=== PATIENT | male | born 1945 | race Caucasian/White ===

== ENCOUNTER 2018-08-19 07:38 | Inpatient (IN) | payer MEDICARE, OTHER ==
[~2018-08-19] VITALS: Ht 175.3 cm; Wt 93.5 kg
--- NOTE | 2018-08-19 09:11 | NUR ---
NURSE WILL START IV ABX ONCE CULTURES ARE COMPLETED.
[2018-08-19 09:42] LABS: CKMB 1.6 U/L (0.0-3.6); CREATINE KINASE 77 UL (21-232); CREATININE - SERUM 1.1 mg/dL (0.6-1.3); MAGNESIUM - SERUM 1.8 mg/dL (1.8-2.4); PRO BNP 4839 pg/mL (0-125)
[2018-08-19 09:43] LABS: TROPONIN-I 0.186 ng/mL (0.000-0.060)
--- NOTE | 2018-08-19 10:23 | NUR ---
NS STOPPED AT THIS TIME PER VERBAL ORDER DR. BUTT.
--- NOTE | 2018-08-19 10:24 | NUR ---
DIBETIC FOOD TRAY ORDERED AT THIS TIME.
--- NOTE | 2018-08-19 13:24 | NUR ---
RECEIVED PT FROM ER. PT IS AAO AND UP AD NELSON. RR EVEN AND UNLABORED ON RA. NO S/S OF DISTRESS NOTED. L.FOR PIV IS SALINE LOCKED. VSS AND WNL. QUICKSTART AND HISTORY COMPLETE. PT DENIES ANY NEEDS AT THIS TIME. WILL CTM.
[2018-08-19] MEDS ORDERED: COREG6.25 MG PO (13:34)
[2018-08-19] MEDS ORDERED: CELEXA40 MG PO (13:34)
[2018-08-19] MEDS ORDERED: FEXOFENADINE H180 MG PO (13:34)
[2018-08-19] MEDS ORDERED: NEURONTIN 300300 MG PO (13:35)
[2018-08-19] MEDS ORDERED: PROTONIX40 MG PO (13:35)
--- NOTE | 2018-08-19 13:35 | NUR ---
TRANSFER FROM ER BY STRETCHER. OREINTED TO ROOM. CALL LIGHT IN REACH. WILL CONT. PLAN OF CARE.
[2018-08-19] MEDS ORDERED: ZOCOR20 MG PO (13:36)
[2018-08-19 13:43] VITALS: BP 153/84; BMI 29.6
[2018-08-19] MEDS ORDERED: LANTUS SOL100 UNIT/1 SC (16:17)
[2018-08-19 16:43] LABS: BASOPHILS 0.3 % (0-2); EOSINOPHILS 1.6 % (0-7); HEMATOCRIT 40.4 % (42.0-54.0); HEMOGLOBIN 13.4 g/dL (13.5-17.5); IMMATURE GRANULOCYTES 0.1 % (0-5); LYMPHOCYTES 30.1 % (15-50); MCH 29.8 pg (26.0-34.0); MCHC 33.2 g/dL (31.0-37.0); MEAN PLATELET VOLUME 10.5 fL (7.4-10.4); NEUTROPHILS 58.9 % (40-80); PLATELET COUNT 238 10x3/uL (130-400); RBC 4.49 10x6/uL (4.20-6.10); RDW 12.7 % (11.5-14.5); WBC 7.9 10x3/uL (4.8-10.8)
[2018-08-19 17:02] LABS: ALBUMIN 2.9 g/dL (3.4-5.0); ANION GAP 10.4 mmol/L (8-16); BILIRUBIN - TOTAL 0.43 mg/dL (0.2-1.3); CALCIUM 8.5 mg/dL (8.5-10.1); CARBON DIOXIDE 30.1 mmol/L (21.0-32.0); CREATININE - SERUM 1.3 mg/dL (0.6-1.3); MAGNESIUM - SERUM 1.6 mg/dL (1.8-2.4); POTASSIUM - SERUM 3.5 mmol/L (3.5-5.1); PROTEIN - SERUM 7.2 g/dL (6.4-8.2); T4 THYROXIN - FREE 1.03 ng/dL (0.76-1.46); THYROID STIMULATING HORMONE 2.2 uIU/mL (0.36-3.74)
[2018-08-19 17:07] LABS: CKMB 1.7 U/L (0.0-3.6); CREATINE KINASE 79 UL (21-232)
[2018-08-19 17:44] LABS: TROPONIN-I 0.192 ng/mL (0.000-0.060)
[2018-08-19 18:23] LABS: COLOR YELLOW (YELLOW)
[2018-08-19 18:24] LABS: APPEARANCE CLEAR (CLEAR); BACTERIA FEW /hpf (NONE SEEN); BILIRUBIN NEGATIVE (NEGATIVE); GLUCOSE 50 mg/dL (NEGATIVE); KETONE NEGATIVE (NEGATIVE); NITRITE NEGATIVE (NEGATIVE); PROTEIN TRACE mg/dL (NEGATIVE); RED CELLS - URINE OCC /hpf (0-5); UROBILINOGEN NORMAL (NORMAL); WHITE CELLS - URINE 0-5 /hpf (0-5)
--- NOTE | 2018-08-19 19:50 | NUR ---
INTRODUCED SELF TO PATIENT, PATIENT HAS NO NEEDS AT THIS TIME. RESP EVEN AND UNLABORED, NO S/SX OF DISCOMFORT OR DISTRESS AT THIS TIME.
[2018-08-19 21:33] VITALS: BP 140/90
[2018-08-19 22:13] LABS: CKMB 1.6 U/L (0.0-3.6); CREATINE KINASE 85 UL (21-232)
[2018-08-19 22:22] LABS: TROPONIN-I 0.214 ng/mL (0.000-0.060)
[2018-08-20] VITALS (7 sets, daily range): BP systolic 113–151; BP diastolic 71–133; Ht 175.3 cm; Wt 93.5 kg
--- NOTE | 2018-08-20 01:07 | NUR ---
PATIENT STATED THAT HE FELT SOME CHEST PRESSURE HE THOUGHT WAS R/T EXCESS FLUID FROM CHF. VITALS WITHIN NORMAL LIMITS, PATIENT HAS BEEN IN AND OUT OF CONTROLLED AFIB. RECHECKED ON PATIENT AND PATIENT STATES HE THINK HE JUST DIDN'T NEED TO LAY COMPLETELY FLAT.
--- NOTE | 2018-08-20 05:02 | NUR ---
PATIENT RESTING QUIETLY WITH EYES CLOSED, HOB AT 30 DEGREES, PATIENT PREFERS TO WEAR OWN CLOTHES INSTEAD OF A GOWN. NO S/SX OF DISTRESS OR DISCOMFORT AT THIS TIME. RESP EVEN AND UNLABORED.
[2018-08-20 05:23] LABS: BASOPHILS 0.3 % (0-2); EOSINOPHILS 3.6 % (0-7); HEMATOCRIT 41.2 % (42.0-54.0); HEMOGLOBIN 13.7 g/dL (13.5-17.5); IMMATURE GRANULOCYTES 0.2 % (0-5); LYMPHOCYTES 29.2 % (15-50); MCH 30.1 pg (26.0-34.0); MCHC 33.3 g/dL (31.0-37.0); MCV 90.5 fL (80.0-100.0); MEAN PLATELET VOLUME 10.4 fL (7.4-10.4); MONOCYTES 8.9 % (2-11); NEUTROPHILS 57.8 % (40-80); PLATELET COUNT 245 10x3/uL (130-400); RBC 4.55 10x6/uL (4.20-6.10); RDW 12.7 % (11.5-14.5)
[2018-08-20 06:27] LABS: CALC OSMOLALITY 281 mosm/kg (275-300); CALCIUM 8.7 mg/dL (8.5-10.1); CARBON DIOXIDE 28.5 mmol/L (21.0-32.0); CHLORIDE - SERUM 100 mmol/L (98-107); CHOL - HDL RATIO 5.2 ratio (2.3-4.9); CHOLESTEROL, TOTAL 125 mg/dL (0-200); CKMB 1.5 U/L (0.0-3.6); CREATINE KINASE 148 UL (21-232); CREATININE - SERUM 1.2 mg/dL (0.6-1.3); GLUCOSE 221 mg/dL (74-106); HDL CHOLESTEROL 24 mg/dL (32-96); LDL CHOLESTEROL 71 mg/dL (0-100); POTASSIUM - SERUM 3.8 mmol/L (3.5-5.1); SODIUM 136 mmol/L (136-145); TRIGLYCERIDE 151 mg/dL (30-200); TROPONIN-I 0.181 ng/mL (0.000-0.060); UREA NITROGEN 21 mg/dL (7-18); eGFR NON AFRICAN AMERICAN 63 mL/min (90-120)
--- NOTE | 2018-08-20 07:05 | NUR ---
RECEIVED REPORT. ASSUMED CARE OF PATIENT. CALL LIGHT WITHIN REACH. PATIENT RESTING WITH EYES CLOSED. EASILY AROUSED. RESP EVEN AND UNLABORED. NO DISTRESS. DENIES NEEDS AT THIS TIME.
--- NOTE | 2018-08-20 11:36 | NUR ---
CALLED PHARMACY DUE TO NOT HAVING LANTUS PEN AND LOAN SUPERVISOR LINDA HUNG UP ON THIS MANAGER ASSET MANAGEMENT. NURSE AUDIO VISUAL AIDS DIRECTOR MADE AWARE. AWAITING FOR LANTUS PEN.
--- NOTE | 2018-08-20 11:44 | NUR ---
FSBS 298. 10 UNITS HUMULIN ADMINISTERED PER SLIDING SCALE. NO DISTRESS.
--- NOTE | 2018-08-20 13:25 | NUR ---
LANTUS PEN STILL NOT AVAILABLE FROM PHARMACY AT THIS TIME.
--- NOTE | 2018-08-20 16:49 | NUR ---
FSBS 163. 4 UNITS HUMULIN R ADMINISTERED PER SLIDING SCALE. NO DISTRESS.
--- NOTE | 2018-08-20 17:20 | NUR ---
PATIENT SURPRISED AT HOW WELL HIS FSBS HAS BEEN CONTROLLED WITHOUT HAVING HIS 44 UNITS OF LANTUS. PATIENT STATES HE HAS NEVER TAKEN DIABETA BEFORE BUT IT SEEMS TO BE WORKING WELL FOR HIM. CALL LIGHT WITHIN REACH. FRESH ICEWATER PROVIDED. NO DISTRESS.
--- NOTE | 2018-08-21 02:39 | NUR ---
PT RESTING IN BED, LOW POSITION, EYES CLOSED, AROUSES EASILY TO VOICE, NO IMMEDIATE NEEDS NOTED, FLUIDS AND CALL LIGHT WITHIN REACH
[2018-08-21 04:09] VITALS: BP 137/77
[2018-08-21 06:53] LABS: BASOPHILS 0.3 % (0-2); EOSINOPHILS 4.5 % (0-7); HEMATOCRIT 42.2 % (42.0-54.0); HEMOGLOBIN 13.9 g/dL (13.5-17.5); IMMATURE GRANULOCYTES 0.2 % (0-5); LYMPHOCYTES 32.7 % (15-50); MCHC 32.9 g/dL (31.0-37.0); MCV 91.1 fL (80.0-100.0); MEAN PLATELET VOLUME 10.6 fL (7.4-10.4); MONOCYTES 9.6 % (2-11); NEUTROPHILS 52.7 % (40-80); PLATELET COUNT 249 10x3/uL (130-400); RBC 4.63 10x6/uL (4.20-6.10); RDW 12.9 % (11.5-14.5); WBC 9.4 10x3/uL (4.8-10.8)
[2018-08-21 07:19] LABS: CALCIUM 8.7 mg/dL (8.5-10.1); CARBON DIOXIDE 28.9 mmol/L (21.0-32.0); CREATININE - SERUM 1.3 mg/dL (0.6-1.3); POTASSIUM - SERUM 3.9 mmol/L (3.5-5.1)
--- NOTE | 2018-08-21 07:30 | NUR ---
REPORT RECEIVED. WILL CONTINUE WITH POC. PT CURRENTLY LYING SEMI FOWLERS. CALL LIGHT W/I REACH. PT IS AAO AND UP AD NELSON. RR EVEN AND UNLABORED ON RA. L.FOR PIV IS SALINE LOCKED. PT DENIES ANY NEEDS AT THIS TIME. NO S/S OF DISTRESS NOTED. WILL CTM.
[2018-08-21] MEDS ORDERED: LEVAQUIN750 MG PO (09:27)
[2018-08-21] MEDS ORDERED: LANTUS INSULIN10 ML SC (09:27)
[2018-08-21] MEDS ORDERED: LISINOPRIL5 MG PO (09:29)
[2018-08-21 09:45] VITALS: BP 133/85
--- NOTE | 2018-08-21 11:07 | NUR ---
Nutrition Consult: Consult received to provided diabetic diet education to pt. Pt stated that he has had diabetes for several years and has read information regarding this. Pt stated that he does not eat sweets or drink sweetened beverages. He said that he typically does not eat (or eats a very minimal amount) until dinner. Pt said that his overall po intake is decreased. Spoke with pt regarding importance of 3 meals and 3 snacks each day and provided pt with sample meal plan. Reviewed CHO containing food groups. Encouraged pt to continue to avoid sweets and sweetened beverages. Pt displayed good understanding of material presented. RD phone number provided and pt encouraged to contact RD with any questions. Written info provided to pt. Thank you for the consult. RD following.
--- NOTE | 2018-08-21 13:46 | NUR ---
I have reviewed this patient and I concur with the Shift Assessment completed by the Licensed Practical Nurse today this shift.
--- NOTE | 2018-08-21 15:27 | NUR ---
RECEIVED VERBAL ORDERS FROM THAT PT COULD DISCHARGE AND THAT THEY WOULD SCHEDULE HIM TO RETURN THIS NEXT WEEK FOR A HEART CATH. WILL PROCEED WITH DISCHARGE.
[2018-08-21 15:52] VITALS: BP 130/70
--- NOTE | 2018-08-21 17:26 | MORECARE ---
CASE MANAGEMENT DISCHARGE SUMMARY PATIENT: CARSON VELAZQUEZ UNIT: [id number] ADM DATE: 08/19/18 AGE: 73 : 45 SEX: M ROOM/BED: D.2131 AUTHOR: GALILEA TAPIA PHYSICIAN: REFERRING PHYSICIAN: ADELE SCALES MD DATE OF SERVICE: 08/21/18 Discharge Plan Patient Name: CARSON VELAZQUEZ Facility: [facility]:[place] : 1945 Planned Disposition: Home Anticipated Discharge Date: 08/21/18 Discharge Date: Expected LOS: 2 Initial Reviewer: [email or web address] Initial Review Date: 08/21/2018 Generated: 08/21/18 6:26 pm DCPIA - Discharge Planning Initial Assessment Updated by [email or web address]: Jr Prater on 08/21/18 5:25 pm * Is the patient Alert and Oriented? Yes * How many steps to enter\\exit or inside your home? NONE * [facility] [place] [facility] ALSO * Pharm[facility] * Preadmission Environment Home Alone * ADLs Independent * Equipment None * Other Equipment [facility] * List name and contact numbers for known caregivers / representatives who currently or will assist patient after discharge: LANA COLLINSChayito, FRIEND, * Verbal permission to speak to the caregivers and representatives has been obtained from the patient. N/A * Community resources currently utilized None * Please name any agencies selected above. NONE * Additional services required to return to the preadmission environment? No * Can the patient safely return to the preadmission environment? Yes * Has this patient been hospitalized within the prior 30 days at any hospital? No Patient Name: CARSON VELAZQUEZ Page [id number] at 1726 All edits/amendments must be made on the electronic document DICTATION DATE: 08/21/181724 CONTINUITY WRITER: CATRACHITA 08/21/181724 RPT#: [id number] DC DATE: STATUS: ADM IN [facility] [address] [place] [address] END OF REPORT
--- NOTE | 2018-08-21 17:36 | MORECARE ---
CASE MANAGEMENT DISCHARGE SUMMARY PATIENT: CARSON VELAZQUEZ UNIT: [id number] ADM DATE: 08/19/18 AGE: 73 : 45 SEX: M ROOM/BED: D.2131 AUTHOR: WILLIE,DOC PHYSICIAN: REFERRING PHYSICIAN: ADELE SCALES MD DATE OF SERVICE: 08/21/18 Discharge Plan Patient Name: CARSON VELAZQUEZ Facility: [facility]:[place] : 1945 Planned Disposition: Home Anticipated Discharge Date: 08/21/18 Discharge Date: Expected LOS: 2 Initial Reviewer: [email or web address] Initial Review Date: 08/21/2018 Generated: 08/21/18 6:36 pm Comments DCP- Discharge Planning Updated by [email or web address]: Jr Prater on 08/21/18 4:[address] Patient Name: CARSON VELAZQUEZ Admission Status: ER Accout number: [id number] Admission Date: 08-19-2018 : 1945 Admission Diagnosis: Attending: ADELE SCALES Current LOS: 2 Anticipated DC Date: 08-21-2018 Planned Disposition: Home Primary Insurance: MEDICARE A & B Discharge Planning Comments: CM MET WITH PT IN ROOM TO DISCUSS DISCHARGE PLANNING AND NEEDS. PT REPORTS LIVING AT HOME INDEPENDENTLY AND ALONE. PT HAS NO MEDICAL EQUIPMENT AND NO OUTSIDE SERVICES ASSISTING IN THE HOME. CM DISCUSSED AVAILABILITY OF HOME HEALTH, REHAB SERVICES AND MEDICAL EQUIPMENT. PT DENIES DISCHARGE NEEDS, REPORTS A FRIEND WILL PICK HIM UP FOR DISCHARGE HOME. PT INITIALLY STATES HE CANNOT AFFORD HIS MEDICATION IT IS $437. PT DOES NOT HAVE "CIVIALIAN" INSURANCE FOR PRESCRIPTIONS, HE ONLY BOUGHT THE MEDICAL MEDICARE INSURANCE [facility]. CM CALLED [facility], , SPOKE TO SHITAL WHO INFORMED CM AND PT THAT HIS LEVAQUIN IS $92.64. PT STATES HE HAS LISINOPRIL AND LANTUS AT HOME AND [facility] PROVID[facility] IT. PT REPORTS ABILITY TO AFFORD HIS ANTIBIOTIC, DENIES DISCHARGE NEEDS. BEDSIDE NURSE NOTFIED. First Assist: Jr Prater DCPIA - Discharge Planning Initial Assessment Updated by [email or web address]: Jr Prater on 08/21/18 5:25 pm * Is the patient Alert and Oriented? Yes * How many steps to enter\\exit or inside your home? NONE * [facility] [place] [facility]IAN" DOCTOR ALSO * Pharmacy [facility] OR [facility] * Preadmission Environment Home Alone * ADLs Independent * Equipment None * Other Equipment [facility] * List name and contact numbers for known caregivers / representatives who currently or will assist patient after discharge: LANA GALLEGOS, FRIEND, * Verbal permission to speak to the caregivers and representatives has been obtained from the patient. N/A * Community resources currently utilized None * Please name any agencies selected above. NONE * Additional services required to return to the preadmission environment? No * Can the patient safely return to the preadmission environment? Yes * Has this patient been hospitalized within the prior 30 days at any hospital? No Last DP export: 08/21/18 4:26 p Patient Name: CARSON VELAZQUEZ Page [id number] at 1736 All edits/amendments must be made on the electronic document DICTATION DATE: 08/21/181735 BANQUET STEWARDESS: CATRACHITA 08/21/181735 RPT#: [id number] DC DATE: STATUS: ADM IN [facility] [address] [place] [address] END OF REPORT
--- NOTE | 2018-08-21 17:37 | NUR ---
PT DISCHARGED HOME VIA WHEELCHAIR WITH FAMILY. PT SIGNED PROPER DISCHARGE INSTRUCTION AND REMOVED ALL VALUABLES FROM THE ROOM. PIV REMOVED WITH CATHETER TIP FULLY INTACT.
--- NOTE | 2018-09-02 13:26 | EC ---
PATIENT:CARSON VELAZQUEZ DATE OF SERVICE: 08/19/18 SEX: M MEDICAL RECORD: [id number] DATE OF : 45 LOCATION:D.M2 D.213 AGE OF PATIENT: 73 ADMISSION DATE: 08/19/18 REFERRING PHYSICIAN: INTERPRETING PHYSICIAN: PRIMITIVO BENSON MD ECHOCARDIOGRAM REPORT ECHO CHARGES 4 ECHO COMPLETE Date: 08/20/18 CLINICAL DIAGNOSIS: CHF ECHOCARDIOGRAPHIC MEASUREMENTS (adult normal given) AC root (d.<3.7cm) 3.1 cm LV Septum d (<1.2 cm> 0.7 cm Valve Excursion 1.8 cm LV Septum (systole) 0.8 cm Left Atria (s.<4.0cm> 5.0 cm LVPW d(<1.2cm) 1.0 cm RV (d.<2.3cm) 2.8 cm LVPW (sytole) 1.3 cm LV diastole(<5.6CM) 6.9 cm MV E-F(>70mm/sec) cm LV systole 6.3 cm LVOT Diameter 1.9 cm MV exc.(>10mm) cm Est.ejection fraction (50-75%) % DOPPLER: LVIT cm/sec A 25 cm/sec E 102 cm/sec LA cm/sec RVSP 27.3 mmHg LVOT 75 cm/sec AOP1/2T m/s Asc. Ao 134 cm/sec RVOT 57 cm/sec RA cm/sec PA 81 cm/sec AV Gradient Peak 7.2 mmHg AV Mean 4.8 mmHg AV Area 1.7 cm MV Gradient Peak 4.8 mmHg MV Mean 1.9 mmHg MV Area cm COMMENTS: Mobility Scooter Repairer: Dot GIBBS Costumer Assistant: 3 Dr. Whitaker TAPE# PACS Pericardial Effusion N DATE OF SERVICE: Adequate 2-D, color-flow and spectral Doppler, and M-mode. No LVH. LV internal dimensions are dilated. LV is globally hypokinetic with marked septal hypokinesis. LV function is reduced at 25% to 30%. Aortic valve sclerosis without stenosis by Doppler interrogation. Left atrium is dilated at 5.0 cm. Mitral valve shows no prolapse. Mitral annular calcification and mild MR. Right-sided chambers are grossly normal. Mild plus TR. RV systolic pressure is estimated at greater than or equal to 27 mmHg via the continuity ECHOCARDIOGRAM REPORT [id number] CARSON VELAZQUEZ. TRANSINT:[id number] Voice Confirmation ID: [id number] DOCUMENT ID: [id number] PRIMITIVO BENSON MD at 1326 CC: [id number] DICTATION DATE: 08/20/18 1631 BUSINESS OFFICE TECHNICIAN: 08/20/182010 DIS IN 08/21/18 [place] [id number] [place] [id number]
== END 2018-08-21 17:38 | disposition home or self-care (01) | DRG 291 ==
LOC: D.ER 07:38 → D.M2 10:43
PROVIDERS: Emergency Medicine; ADMIT Internal Medicine Nephrology; ATTEND Internal Medicine Nephrology
DX: I11.0 Hypertensive heart disease with heart failure (principal); J18.1 Lobar pneumonia, unspecified organism; I24.8 Other forms of acute ischemic heart disease; N17.9 Acute kidney failure, unspecified; I48.91 Unspecified atrial fibrillation; I50.23 Acute on chronic systolic (congestive) heart failure; E78.5 Hyperlipidemia, unspecified; I25.10 Atherosclerotic heart disease of native coronary artery without angina pectoris; K21.9 Gastro-esophageal reflux disease without esophagitis; K75.9 Inflammatory liver disease, unspecified; E11.9 Type 2 diabetes mellitus without complications

== ENCOUNTER 2018-08-28 11:33 | Outpatient (CLI) | payer MEDICARE, OTHER ==
[~2018-08-28] VITALS: Ht 172.7 cm; Wt 88.6 kg
--- NOTE | ~2018-08-28 | HEMODYNAMI ---
PATIENT:CARSON VELAZQUEZ MEDICAL RECORD: [id number] : 45 LOCATION:DNoyCAT ADMISSION DATE: 08/28/18 Generatedon:08/28/201815:35 Patient name: CARSON VELAZQUEZ Patient #: [id number] SSN: : 1945 Date of study: 08/28/2018 Page: Of Hemodynamic Procedure Report Patient Data Patient Demographics Procedure consent was obtained First Name: CARSON Gender: Male Last Name: CAROLINE : 1945 [facility] Initial: IRIS Age: 73 year(s) Patient #: [id number] Race: Unknown Additional ID: [id number] Contact details Address: [place] [address] State: [place] City: [place] Zip code: [address] Admission Admission Data Admission Date: 08/28/2018 Admission Time: 11:33 Procedure Procedure Types Cath Procedure Diagnostic Procedure LHC LHC w/Coronaries w/Grafts Sedation Charges Moderate Sedation up to 15 minutes PCI Procedure Coronary Stent Coronary Stent Initial Procedure Description Procedure Date Procedure Date: 08/28/2018 Procedure Start Time: 15:06 Procedure End Time: 15:32 Procedure Staff Name Function Bright Mauricio MD Performing Physician Merna Vyas RT Monitor Asa Dowling RN Nurse Froylan Garcia RT Scrub Procedure Data Cath Procedure Fluoroscopy Diagnostic fluoroscopy Total fluoroscopy Time: 6.3 time: 6.3 min min Diagnostic fluoroscopy Total fluoroscopy dose: dose: 1337 mGy 1337 mGy Contrast Material Contrast Material Type Amount (ml) Isovue 300 108 Entry Location Entry Primary Successful Side Size Upsize Upsize Entry Closure Succes sful Closure Location (Fr) 1 (Fr) 2 (Fr) Remarks Device Remarks Femoral Right 5 Fr 6 Fr Exoseal artery Short Estimated blood loss: 5 ml Diagnostic catheters Device Type Used For End Catheter Placement MULTIPACK JL 4.0 5Fr Left Coronary catheter Angiography MULTIPACK 3DRC 5Fr Right Coronary catheter Angiography DIAGNOSTIC AR MOD 5Fr Multi-vessel Catheter ([id number]) Angiography MULTIPACK Pigtail 5 Fr LV Angiography catheter Procedure Complications No complications Procedure Medications Medication Administration Route Dosage 0.9% NaCl I.V. 100 ml/hr Oxygen etCO2 Nasal cannula 2 l/min Heparin Flush Bag added to field 2 bags (1000units/500ml NS) Lidocaine 2% added to field 20 Versed I.V. 1 mg Fentanyl I.V. 50 mcg Versed I.V. 1 mg Fentanyl I.V. 50 mcg Versed I.V. 2 mg Heparin Bolus I.V. 9000 units Plavix P.O. 600 mg Hemodynamics Rest Heart Rate: 64 (bpm) Pressure Samples Time Site Value (mmHg) Purpose Heart Use Rate(bpm) 15:15 LV 110/25,31 Snapshot 55 15:16 AO 102/62(78) Pullback 66 15:16 LV 104/13,22 Pullback 66 Gradients Valve Time Site 1 Site 2 Mean SEP/DFP Peak To Heart Use (mmHg) (sec/min) Peak Rate (mmHg) (bpm) Aortic 15:16 LV AO 11 18 2 66 104/13,22 102/62(78) Calculations Valve P-P Mean Valve Index Valve Source Name Gradient Area Flow (cm2) Aortic 2 11 2 11 Snapshots Pre Cath Intra NCS Post Cath Vital Signs Time Heart Resp SPO2 etCO2 NIBP (mmHg) Rhythm Pain Sedation Rate (ipm) (%) (mmHg) Status Level (bpm) 14:50:05 64 14 98 0 124/82(109) NSR 0 (11) 10(A) , No pain 14:54:11 63 13 100 36.5 133/77(104) NSR 0 (11) 10(A) , No pain 14:58:21 60 19 99 38 127/73(90) NSR 0 (11) 10(A) , No pain 15:02:28 61 19 98 38.8 115/74(91) NSR 0 (11) 10(A) , No pain 15:06:30 61 19 98 29.1 122/75(97) NSR 0 (11) 10(A) , No pain 15:10:36 61 14 98 0 127/72(95) NSR 0 (11) 9(A) , No pain 15:14:42 69 15 97 38.1 123/82(93) NSR 0 (11) 9(A) , No pain 15:18:48 65 15 97 21.6 125/79(95) NSR 0 (11) 9(A) , No pain 15:22:53 65 16 98 13.4 124/81(100) NSR 0 (11) 9(A) , No pain 15:27:05 66 16 97 0 112/73(81) NSR 0 (11) 9(A) , No pain 15:31:07 65 17 98 38.8 121/73(95) NSR 0 (11) 10(A) , No pain Medications Time Medication Route Dose Verified Delivered Reason Notes Effectiveness by by 14:52:23 0.9% NaCl I.V. 100 Asa Asa Per physician ml/hr Josey Dowling RN RN 14:52:33 Oxygen etCO2 2 Asa Asa for low 02 sats Nasal l/min Josey Dowling cannula RN RN 14:52:45 Heparin Flush added 2 Asa Asa used for Bag to bags Josey Dowling procedure (1000units/500ml field RN RN NS) 14:52:56 Lidocaine 2% added 20ml Asa Asa for local to vial Lorgermán Dowling anesthetic field RN RN 14:53:10 Versed I.V. 1 mg Asa Asa for sedation Josey Dowling RN RN 14:53:20 Fentanyl I.V. 50 Asa Asa for sedation mcg Josey Dowling RN RN 15:03:31 Versed I.V. 1 mg Asa Asa for sedation Josey Dowling RN RN 15:05:11 Fentanyl I.V. 50 Asa Asa for sedation mcg Josey Dowling RN RN 15:08:07 Versed I.V. 2 mg Asa Asa for sedation Josey Dowling RN RN 15:20:26 Heparin Bolus I.V. 9,000 Asa Asa for units Josey Dowling anticoagulation RN RN 15:34:12 Plavix P.O. 600 Asa Asa for mg Josey Dowling antiplatelet RN RN therapy Procedure Log Time Note 13:46:29 Informed consent obtained and on chart 13:46:34 Diagnostic Cath Status : Elective 13:47:38 Froylan Garcia RT(R) sent for patient. Start room use. 13:47:39 Time tracking: Regular hours (M-F 7:00 - 5:00) 13:47:49 Plan of Care:Hemodynamics will remain stable., Cardiac rhythm will remain stable., Comfort level will be maintained., Respiratory function will remain adequate., Patient/ family verbilizes understanding of procedure., Procedure tolerated without complication., Recovers from procedure without complications.. 14:42:59 Patient received from Pre/Post Procedure Room to CCL 2 Alert and oriented. Tansferred to table in Supine position. 14:43:01 Warm blankets applied, and aristeo hugger turned on for patient comfort. 14:43:01 Correct patient and procedure confirmed by team. 14:43:02 ECG and BP/O2 sat monitors applied to patient. 14:48:59 Baseline sample Acquired. 14:48:59 Vital chart was started 14:49:02 Rhythm: sinus rhythm 14:49:04 Full Disclosure recording started 14:49:07 H&P Date Dictated: 08/28/2018 Within 30 days and on chart., H&P Addendum completed by physician on day of procedure. (MUST COMPLETE FOR ALL OUTPATIENTS). 14:49:08 Pre-procedure instructions explained to patient. 14:49:09 Pre-op teaching completed and patient verbalized understanding. 14:49:10 Family in patients room. 14:49:12 Patient NPO since Midnight. 14:49:13 Is the patient allergic to Iodine/contrast media? No. 14:49:14 Was the patient premedicated? No 14:49:15 Is patient on blood thinner?No 14:49:16 Patient diabetic? Yes. 14:49:17 If diabetic: On Metformin? No 14:49:19 Previous problem with sedation/anesthesia? No ? 14:49:21 Snore? Yes 14:49:22 Sleep apnea? No 14:49:23 Deviated septum? No 14:49:23 Opens mouth fully? Yes 14:49:24 Sticks out tongue? Yes 14:49:25 Airway obstruction? No ? 14:49:28 Dentures? No ? 14:49:32 Pre procedure: right dorsailis pedis pulse 2+ Normal; easily identifiable; not easily obliterated 14:49:35 Pre procedure: left dorsailis pedis pulse 2+ Normal; easily identifiable; not easily obliterated 14:49:38 Patient pain scale 0/10 ?. 14:49:42 IV patent on arrival in left forearm with 0.9% NaCl at [facility]. 14:49:45 Lab results completed and on chart. 14:49:50 Right groin area was prepped with chlora-prep and draped in sterile fashion 14:49:50 Alarms reviewed by R. N. 14:49:51 Sharps counted by scrub and verified by R.N. 14:49:52 Physician arrived 14:49:52 --------ALL STOP TIME OUT------ 14:49:53 Final Timeout: patient, procedure, and site verified with staff and physician. All members of the team are in agreement. 14:49:56 Right groin site verified by team. 14:49:59 Maximum allowable Isovue 370 dose 300ml. Physician notified. (300ml for normal creatinines. For patients with creatinine of 1.7 or higher multiply weight(kg) x 5 divided by creatinine.) 14:50:02 Fire Safety Assessment: A--An alcohol-based skin anteseptic being used preoperatively., C--Open oxygen or nitrous oxide is being used., D--An ESU, laser, or fiber-optic light is being used. 14:50:06 Physical assessment completed. ASA score P 2 - A patient with mild systemic disease as per Bright Mauricio MD. 14:50:09 Sedation plan: IV Moderate Sedation Medication:Versed, Fentanyl 14:50:12 Use device set Femoral Dx 14:50:13 ACIST Syringe (34062) opened to sterile field. 14:50:13 Bag Decanter (2001S) opened to sterile field. 14:50:14 Medline Cath Pack ([id number]) opened to sterile field. 14:50:15 DIAGNOSTIC WIRE .035 260cm J wire (437085) opened to sterile field. 14:50:15 ACIST Hand Control (57467) opened to sterile field. 14:50:16 ACIST Manifold (25500) opened to sterile field. 14:50:16 DIAGNOSTIC Multipack 5Fr catheter set (IZ4934) opened to sterile field. 14:50:17 Tegaderm 4 x 4 (1626W) opened to sterile field. 14:50:18 SHEATH 5FR Freeport (RKS661) opened to sterile field. 14:52:23 0.9% NaCl 100 ml/hr I.V. was administered by Asa Lorigan RN; Per physician; 14:52:33 Oxygen 2 l/min etCO2 Nasal cannula was administered by Asa Dowling RN; for low 02 sats; 14:52:45 Heparin Flush Bag (1000units/500ml NS) 2 bags added to field was administered by Asa Dowling RN; used for procedure; 14:52:56 Lidocaine 2% 20ml vial added to field was administered by Asa Dowling RN; for local anesthetic; 14:53:10 Versed 1 mg I.V. was administered by Asa Dowling RN; for sedation; 14:53:20 Fentanyl 50 mcg I.V. was administered by Asa Dowling RN; for sedation; 14:56:00 Zero performed for pressure channel P1 15:03:31 Versed 1 mg I.V. was administered by Asa Dowling RN; for sedation; 15:05:11 Fentanyl 50 mcg I.V. was administered by Asa Dowling RN; for sedation; 15:06:08 Procedure started. 15:06:14 Local anesthetic to right femoral artery with Lidocaine 2% by Bright Mauricio MD.INITIAL ACCESS ONLY 15:06:23 A 5 Fr sheath was inserted into the Right Femoral artery 15:07:40 A MULTIPACK JL 4.0 5Fr catheter was advanced over the wire and used for Left Coronary Angiography. 15:08:07 Versed 2 mg I.V. was administered by Asa Dowling RN; for sedation; 15:08:45 LCA angiography performed. 15:08:47 Injector settings: Ml/sec: 3, Volume: 6, 15:09:31 Catheter removed. 15:09:36 A MULTIPACK 3DRC 5Fr catheter was advanced over the wire and used for Right Coronary Angiography. 15:10:37 ALEJO angiography performed. 15:10:41 Injector settings: Ml/sec: 3, Volume: 6, 15:12:11 Catheter removed. 15:12:31 A DIAGNOSTIC AR MOD 5Fr Catheter ([id number]) was advanced over the wire and used for Multi-vessel Angiography. 15:12:35 RCA angiography performed. 15:13:07 Injector settings: Ml/sec: 3, Volume: 6, 15:13:44 SVG to LAD angiography performed. 15:13:47 Catheter removed. 15:14:11 SHEATH 6FR Freeport (TTC986) opened to sterile field. 15:14:11 INFLATOR Merit BasixCompak (VR2441) opened to sterile field. 15:14:13 TUBING High Pressure Extension Tubing (Mauricio) ([id number]) opened to sterile field. 15:14:25 BMW 300cm Panola 2 J wire ([id number]) opened to sterile field. 15:15:47 GUIDE 6FR AR 1.0 catheter (EL2KB33) opened to sterile field. 15:16:11 A MULTIPACK Pigtail 5 Fr catheter was advanced over the wire and used for LV Angiography. 15:16:34 LV hemodynamics recorded. 15:16:37 LV gram done using CAZARES 15:16:40 Injector settings: Ml/sec: 5, Volume: 15, 15:16:45 EF : 20 % 15:17:12 Catheter removed. 15:17:15 Proceeding to intervention. 15:17:24 Sheath upsized to a 6 Fr Short. 15:17:30 6 Fr ar 1 guide catheter was inserted over the wire 15:17:33 bmw wire advanced. 15:20:26 Heparin Bolus 9,000 units I.V. was administered by Asa Dowling RN; for anticoagulation; 15:20:35 Wire advanced across lesion. 15:24:14 Place stent Inflation Number: 1 A MARIELENA OTW 3.5 x 26 stent ([id number]) was prepped and advanced across the Mid RCA. The stent was deployed at 14 VITALIY for 0:10 (min:sec). 15:30:18 Stent catheter was removed intact over wire. 15:30:19 Wire removed. 15:30:20 Guide catheter removed. 15:30:30 EXOSEAL 6Fr (EX600) opened to sterile field. 15:30:41 Sheath removed intact; hemostasis achieved with Exoseal to the Right Femoral artery. 15:30:42 Procedure ended.(Physican Out) 15:31:03 Fluoroscopy time 06.30 minutes. 15:31:11 Fluoroscopy dose: 1337 mGy 15:31:11 Flurop Dose total: 1337 15:31:37 Contrast amount:Isovue 300 108ml. 15:31:38 Sharps counted by scrub and verified by R.N. 15:31:42 Insertion/operative site no bleeding no hematoma. 15:31:45 Post-op/insertion site Right Femoral artery dressed using a 4 x 4 and Tegaderm. 15:31:48 Post right femoral artery:stable 15:31:49 Post Procedure Pulses reassessed and unchanged 15:31:52 Post procedure rhythm: unchanged. 15:31:54 Estimated blood loss: 5 ml 15:31:55 Post procedure instruction explained to patient.Patient verbalizes understanding. 15:31:56 Patient needs reinforcement of post procedure teaching. 15:32:04 Procedure type changed to Cath procedure, Diagnostic procedure, LHC, LHC w/Coronaries w/Grafts, Sedation Charges, Moderate Sedation up to 15 minutes, PCI procedure, Coronary Stent, Coronary Stent Initial 15:32:05 Procedure and supply charges have been captured, reviewed, submitted and are correct. 15:32:09 Procedure Complication : No complications 15:32:12 Vital chart was stopped 15:32:12 See physician's report for complete and final results. 15:32:14 Report given to Pre/Post Procedure Room. 15:32:17 Patient transfered to Pre/Post Procedure Room with Stretcher. 15:32:18 Procedure ended. 15:32:18 Full Disclosure recording stopped 15:32:32 ACC-PCI Only Patient was given prescriptions, or instructed by Bright Mauricio MD to start/continue the following medications upon discharge: Plavix 15:32:34 End room use (Document Last) 15:34:12 Plavix 600 mg P.O. was administered by Asa Dowling RN; for antiplatelet therapy; Intervention Summary Intervention Notes Time ActionType Lesion and Equipment Action# Pressure Duration Attributes Used 15:24:14 Place stent Mid RCA MARIELENA OTW 3.5 1 14 00:10 x 26 stent ([id number]) Device Usage Item Name Manufacture Quantity Catalog Hospital Part Current Mini mal Lot# / Number Charge Number Stock Stock Serial# Code ACIST Syringe Acist 1 55459 108703 706124 502880 20 (83430) Medical Systems Inc Bag Decanter Microtek 1 046524 38905 476804 5 () Medical Inc. Medline Cath Medline 1 [id number] 731726 16372 656326 5 Pack ([id number]) DIAGNOSTIC [facility] Josiah 1 399294 876850 007875 276586 30 WIRE .035 260cm J wire (575903) ACIST Hand Acist 1 01685 073396 070271 273893 5 Control Medical (02886) Systems Inc ACIST Acist 1 72944 785358 694477 824714 5 Manifold Medical (80109) Systems Inc DIAGNOSTIC Cardinal 1 OY3184 119402 66327 213810 30 Multipack 5Fr Health catheter set (UO4112) Tegaderm 4 x 3M 1 1626W 784308 617538 456983 5 4 (1626W) SHEATH 5FR Terumo 1 QGO844 078519 919068 161572 5 Freeport (PIB084) MULTIPACK JL Cardinal 1 221939 5 4.0 5Fr Health catheter MULTIPACK Cardinal 1 287692 5 3DRC 5Fr Health catheter DIAGNOSTIC AR Cardinal 1 [id number] 948637 489993 555480 15 MOD 5Fr Health Catheter (298341Q) SHEATH 6FR Terumo 1 CQR748 518344 516595 682522 40 Freeport (PXE425) INFLATOR Merit 1 CG6797 282250 390300 389465 15 Merit Medical BasixCompak (EI6852) TUBING High Merit 1 UC1134W 064994 66287 203247 10 Pressure Medical Extension Tubing (Mauricio) (YB2907S) BMW 300cm Amaya 1 [id number] 970488 593094 322938 5 Panola 2 J Vascular wire (1661712T) GUIDE 6FR AR Medtronic 1 ML3XJ03 043034 33694 021823 1 1.0 catheter (RP7CN98) MULTIPACK Cardinal 1 457378 5 Pigtail 5 Fr Health catheter MARIELENA OTW 3.5 Medtronic 1 [id number] 447006 0738638 290190 5 [id number] x 26 stent ([id number]) EXOSEAL 6Fr Cardinal 1 EX600 967831 458015 952384 10 (EX600) Health Signature Audit [place] Stage Time Signature Unsigned Intra-Procedure 08/28/2018 Merna Vyas 3:35:49 PM RT(R) Signatures Monitor : Merna Vyas RT Signature : Date : Time : [facility] [address] [place] [address]
[~2018-08-28 11:33] MED LIST: CELEXA40 MG PO; COREG6.25 MG PO; FEXOFENADINE H180 MG PO; LANTUS INSULIN10 ML SC; LANTUS SOL100 UNIT/1 SC; LEVAQUIN750 MG PO; LISINOPRIL5 MG PO; NEURONTIN 300300 MG PO; PROTONIX40 MG PO; ZOCOR20 MG PO
[2018-08-28] MEDS ORDERED: LISINOPRIL5 MG PO (11:52)
[2018-08-28] MEDS ORDERED: CLARITIN 10 MG10 MG PO (11:53)
[2018-08-28 12:05] VITALS: BP 133/71; Ht 172.7 cm; Wt 88.6 kg
[2018-08-28 12:15] LABS: BASOPHILS 0.4 % (0-2); EOSINOPHILS 5.1 % (0-7); HEMATOCRIT 41.6 % (42.0-54.0); HEMOGLOBIN 14.4 g/dL (13.5-17.5); IMMATURE GRANULOCYTES 0.3 % (0-5); LYMPHOCYTES 37.4 % (15-50); MCH 30.4 pg (26.0-34.0); MCHC 34.6 g/dL (31.0-37.0); MCV 87.9 fL (80.0-100.0); MEAN PLATELET VOLUME 10.7 fL (7.4-10.4); MONOCYTES 9.5 % (2-11); NEUTROPHILS 47.3 % (40-80); PLATELET COUNT 252 10x3/uL (130-400); RBC 4.73 10x6/uL (4.20-6.10); RDW 12.6 % (11.5-14.5); WBC 6.9 10x3/uL (4.8-10.8)
[2018-08-28 12:22] LABS: ANION GAP 12.2 mmol/L (8-16); CALCIUM 8.6 mg/dL (8.5-10.1); CARBON DIOXIDE 27.1 mmol/L (21.0-32.0); CREATININE - SERUM 1.4 mg/dL (0.6-1.3); POTASSIUM - SERUM 4.3 mmol/L (3.5-5.1)
[2018-08-28] MEDS ORDERED: PLAVIX75 MG PO (15:48)
[2018-08-28] MEDS ORDERED: BAYER CHEWABLE81 MG PO (15:48)
--- NOTE | 2018-08-28 15:55 | NUR ---
RECIEVED TO ROOM VIA STRETCHER FROM BRAIDED RUG MAKER WITH 6 FR EXOSEAL R/GROIN CDI NO BLEEDING OR HEMATOMA NOTED. PATIENT CONNECTED TO MONITOR FOR OBSERVATION WITH HR 68 BP 117/69. INSTRUCTED PATIENT TO KEEP HEAD FLAT ON PILLOW WITH RLE STRAIGHT
--- NOTE | 2018-08-28 16:06 | NUR ---
6 FR EXOSEAL R/GROIN REMAINS CDI WITH NO BLEEDING NOTED. VSS AND CHEST PAIN IS DENIED PATIENT TOLERATING PO FLUIDS
--- NOTE | 2018-08-28 16:18 | NUR ---
RESTING QUIETLY WITH NO DISTRESS VSS 6 FR EXOSEAL R/GROIN IS CDI
--- NOTE | 2018-08-28 16:36 | NUR ---
6 FR EXOSEAL R/GROIN IS CDI WITH CHEST PAIN DENIED. HR 68 BP 122/71. FAMILY IS PRESENT AT BEDSIDE
--- NOTE | 2018-08-28 17:08 | NUR ---
PT SUPINE. RIGHT GROIN DRESSING C/D/I. NO S/S OF HEMATOMA NOTED. RIGHT PEDAL PULSE PALPABLE. DENIES NAUSEA. VSS.
--- NOTE | 2018-08-28 17:30 | NUR ---
VERBAL AND WRITTEN DISCHARGE GONE OVER WITH PATIENT AND FAMILY ALL VERBALIZED UNDERSTANDING. 6 FR EXOSEAL R/GROIN IS CDI NO BLEEDING NOTED
--- NOTE | 2018-08-28 17:56 | NUR ---
REPOSITIONED TO HOB UP 30 FOR COMFORT. CHEST PAIN IS DENIED. 6 FR EXOSEAL R/GROIN REMAINS CDI SANDWICH AND SODA TO BEDSIDE
--- NOTE | 2018-08-28 18:42 | NUR ---
LEFT FA PIV D/C'D WITH CATH TIP INTACT. RIGHT GROIN DRESSING C/D/I. NO S/S OF HEMATOMA NOTED. PT INSTRUCTED TO GET UP AND DRESSED.
--- NOTE | 2018-08-28 18:57 | NUR ---
PT TAKEN OUT TO VEHICLE BY WHEELCHAIR. ALL BELONGINGS AND PAPERWORK IN HAND. NO S/S OF DISTRESS NOTED.
== END 2018-08-28 18:57 | disposition home or self-care (01) ==
LOC: D.CATH 11:33
PROVIDERS: ATTEND Internal Medicine Cardiovascular Disease
DX: I25.119 Atherosclerotic heart disease of native coronary artery with unspecified angina pectoris (principal); I50.9 Heart failure, unspecified; Z95.1 Presence of aortocoronary bypass graft; Z01.812 Encounter for preprocedural laboratory examination
CPT/HCPCS: 93459; C9600

== ENCOUNTER 2018-12-02 05:24 | Inpatient (IN) | payer MEDICARE, OTHER ==
[~2018-12-02] VITALS: Ht 172.7 cm; Wt 95.3 kg
[~2018-12-02 05:24] MED LIST changes: +BAYER CHEWABLE81 MG PO; +CLARITIN 10 MG10 MG PO; +PLAVIX75 MG PO
[2018-12-02 06:21] LABS: BASOPHILS 0.1 % (0-2); EOSINOPHILS 0.9 % (0-7); HEMATOCRIT 40.6 % (42.0-54.0); IMMATURE GRANULOCYTES 0.3 % (0-5); LYMPHOCYTES 18.2 % (15-50); MCH 30.8 pg (26.0-34.0); MCHC 34.5 g/dL (31.0-37.0); MCV 89.4 fL (80.0-100.0); MEAN PLATELET VOLUME 10.5 fL (7.4-10.4); MONOCYTES 8.2 % (2-11); NEUTROPHILS 72.3 % (40-80); RBC 4.54 10x6/uL (4.20-6.10); RDW 13.8 % (11.5-14.5); WBC 13.6 10x3/uL (4.8-10.8)
[2018-12-02 06:24] LABS: INR 1.24 (0.85-1.17); PROTIME 15.1 SECONDS (11.6-15.0)
[2018-12-02 06:25] LABS: APTT 40.5 SECONDS (22.8-39.4)
[2018-12-02 06:41] LABS: PLATELET COUNT 183 10x3/uL (130-400)
[2018-12-02 06:44] LABS: ALBUMIN 3.4 g/dL (3.4-5.0); ANION GAP 16.2 mmol/L (8-16); BILIRUBIN - TOTAL 1.79 mg/dL (0.2-1.3); CALCIUM 8.9 mg/dL (8.5-10.1); CREATININE - SERUM 1.3 mg/dL (0.6-1.3); POTASSIUM - SERUM 4.2 mmol/L (3.5-5.1); PROTEIN - SERUM 8.1 g/dL (6.4-8.2)
[2018-12-02 07:00] LABS: MAGNESIUM - SERUM 1.6 mg/dL (1.8-2.4); THYROID STIMULATING HORMONE 2.3 uIU/mL (0.36-3.74)
[2018-12-02 07:06] LABS: TROPONIN-I 0.099 ng/mL (0.000-0.060)
[2018-12-02] MEDS ORDERED: MOBIC7.5 MG PO (07:25)
[2018-12-02] MEDS ORDERED: CYCLOBENZAPRINE10 MG PO (07:26)
[2018-12-02] MEDS ORDERED: TYLENOL W/CODEI1 TAB PO (07:27)
[2018-12-02 08:55] VITALS: BP 141/84
[2018-12-02 13:32] LABS: CKMB 1.3 U/L (0.0-3.6); CREATINE KINASE 162 UL (21-232); TROPONIN-I 0.056 ng/mL (0.000-0.060)
[2018-12-02 18:15] VITALS: BP 126/89
[2018-12-02 18:21] LABS: CKMB 1.1 U/L (0.0-3.6); CREATINE KINASE 83 UL (21-232)
[2018-12-02 18:22] LABS: TROPONIN-I 0.066 ng/mL (0.000-0.060)
[2018-12-02 20:00] VITALS: BP 146/65
[2018-12-03] VITALS: BP 111/64
[2018-12-03 04:00] VITALS: BP 128/66
[2018-12-03 05:21] VITALS: BMI 32.0
[2018-12-03 07:15] LABS: CKMB 1.3 U/L (0.0-3.6); CREATINE KINASE 66 UL (21-232); PRO BNP 2926 pg/mL (0-125); TROPONIN-I 0.041 ng/mL (0.000-0.060)
[2018-12-03 08:07] VITALS: BP 130/79
[2018-12-03 12:22] VITALS: BP 121/72
[2018-12-03 13:57] VITALS: BMI 31.9
--- NOTE | 2018-12-03 17:57 | MORECARE ---
CASE MANAGEMENT DISCHARGE SUMMARY PATIENT: CARSON VELAZQUEZ UNIT: [id number] ADM DATE: 12/02/18 AGE: 73 : 45 SEX: M ROOM/BED: D.2120 AUTHOR: GALILEA TAPIA PHYSICIAN: REFERRING PHYSICIAN: ADELE SCALES MD DATE OF SERVICE: 12/03/18 Discharge Plan Patient Name: CARSON VELAZQUEZ Facility: [facility]:[place] : 1945 Planned Disposition: Home Anticipated Discharge Date: Discharge Date: Expected LOS: Initial Reviewer: [email or web address] Initial Review Date: 12/02/2018 Generated: 12/03/18 6:56 pm DCPIA - Discharge Planning Initial Assessment Updated by [email or web address]: Hanny Hinds on 12/03/18 5:55 pm * Is the patient Alert and Oriented? Yes * How many steps to enter\exit or inside your home? * PCP NO PCP * [facility] * Preadmission Environment Home with Family * ADLs Independent * Equipment None * List name and contact numbers for known caregivers / representatives who currently or will assist patient after discharge: LANA GALLEGOS - [phone] * Verbal permission to speak to the caregivers and representatives has been obtained from the patient. N/A * Community resources currently utilized None * Additional services required to return to the preadmission environment? No * Can the patient safely return to the preadmission environment? Yes * Has this patient been hospitalized within the prior 30 days at any hospital? No Patient Name: CARSON EVLAZQUEZ Page 23835 at 1757 All edits/amendments must be made on the electronic document DICTATION DATE: 12/03/181755 CLINICAL RESEARCH TECHNICIAN: CATRACHITA 12/03/181755 RPT#: [id number] DC DATE: STATUS: ADM IN [facility] [address] [place] [address] END OF REPORT
--- NOTE | 2018-12-03 18:05 | MORECARE ---
CASE MANAGEMENT DISCHARGE SUMMARY PATIENT: CARSON VELAZQUEZ UNIT: [id number] ADM DATE: 12/02/18 AGE: 73 : 45 SEX: M ROOM/BED: D.7531 AUTHOR: WILLIEDOC PHYSICIAN: REFERRING PHYSICIAN: ADELE SCALES MD DATE OF SERVICE: 12/03/18 Discharge Plan Patient Name: CARSON VELAZQUEZ Facility: [facility]:[place] : 1945 Planned Disposition: Home Anticipated Discharge Date: Discharge Date: Expected LOS: Initial Reviewer: [email or web address] Initial Review Date: 12/02/2018 Generated: 12/03/18 7:05 pm Comments DCP- Discharge Planning Updated by [email or web address]: Hanny Hinds on 12/03/18 4:[address] Patient Name: CARSON VELAZQUEZ Admission Status: ER Accout number: [id number] Admission Date: 12-02-2018 : 1945 Admission Diagnosis: Attending: ADELE SCALES Current LOS: 1 Anticipated DC Date: Planned Disposition: Home Primary Insurance: MEDICARE A & B Discharge Planning Comments: CM met with patient at bedside after explaining CM role and obtaining verbal consent. Patient lives at home alone and plans to return there upon discharge. Patient feels this would be a safe discharge. CM discussed availability / needs of home health and medical equipment. Patient denies any discharge needs at this time. Patient states he will have family / friend drive him home upon discharge. CM will continue to follow and assist as needed with discharge planning / needs. Cultural Historian: Hanny Hinds DCPIA - Discharge Planning Initial Assessment Updated by [email or web address]: Hanny Hinds on 12/03/18 5:55 pm * Is the patient Alert and Oriented? Yes * How many steps to enter\exit or inside your home? * PCP NO PCP * [facility]acy [facility] * Preadmission Environment Home with Family * ADLs Independent * Equipment None * List name and contact numbers for known caregivers / representatives who currently or will assist patient after discharge: LANA GALLEGOS [phone] * Verbal permission to speak to the caregivers and representatives has been obtained from the patient. N/A * Community resources currently utilized None * Additional services required to return to the preadmission environment? No * Can the patient safely return to the preadmission environment? Yes * Has this patient been hospitalized within the prior 30 days at any hospital? No Last DP export: 12/03/18 4:57 p Patient Name: CARSON VELAZQUEZ Page 41939 at 1805 All edits/amendments must be made on the electronic document DICTATION DATE: 12/03/181803 HAND SPRING FORMER: CATRACHITA 12/03/181803 RPT#: [id number] DC DATE: STATUS: ADM IN [facility] [address] [place] [address] END OF REPORT
[2018-12-03 20:00] VITALS: BP 150/82
[2018-12-04] VITALS: BP 152/85
[2018-12-04 04:00] VITALS: BP 125/83
[2018-12-04 06:28] LABS: BASOPHILS 0.2 % (0-2); EOSINOPHILS 4.9 % (0-7); HEMOGLOBIN 12.7 g/dL (13.5-17.5); IMMATURE GRANULOCYTES 0.2 % (0-5); LYMPHOCYTES 23.8 % (15-50); MCH 30.4 pg (26.0-34.0); MCHC 33.4 g/dL (31.0-37.0); MCV 90.9 fL (80.0-100.0); MEAN PLATELET VOLUME 10.6 fL (7.4-10.4); MONOCYTES 11.8 % (2-11); NEUTROPHILS 59.1 % (40-80); PLATELET COUNT 171 10x3/uL (130-400); RBC 4.18 10x6/uL (4.20-6.10); RDW 13.9 % (11.5-14.5)
[2018-12-04 06:38] LABS: WBC 8.1 10x3/uL (4.8-10.8)
[2018-12-04 06:51] LABS: ANION GAP 10.8 mmol/L (8-16); CALCIUM 8.6 mg/dL (8.5-10.1); CARBON DIOXIDE 28.9 mmol/L (21.0-32.0); CREATININE - SERUM 1.1 mg/dL (0.6-1.3); PHOSPHOROUS 3.5 mg/dL (2.5-4.9); POTASSIUM - SERUM 3.7 mmol/L (3.5-5.1)
[2018-12-04 08:40] VITALS: BP 149/87
[2018-12-04 12:27] VITALS: BP 138/92
[2018-12-04 15:49] VITALS: Ht 172.7 cm; Wt 95.3 kg
[2018-12-04 16:00] VITALS: BP 152/99
[2018-12-04 20:00] VITALS: BP 120/82
[2018-12-05] VITALS: BP 121/72
[2018-12-05 04:30] VITALS: BP 141/75
[2018-12-05 05:28] LABS: BASOPHILS 0.2 % (0-2); EOSINOPHILS 4.7 % (0-7); HEMATOCRIT 37.9 % (42.0-54.0); HEMOGLOBIN 12.6 g/dL (13.5-17.5); IMMATURE GRANULOCYTES 0.1 % (0-5); LYMPHOCYTES 32.3 % (15-50); MCH 30.4 pg (26.0-34.0); MCHC 33.2 g/dL (31.0-37.0); MCV 91.5 fL (80.0-100.0); MEAN PLATELET VOLUME 10.5 fL (7.4-10.4); MONOCYTES 10.6 % (2-11); NEUTROPHILS 52.1 % (40-80); RBC 4.14 10x6/uL (4.20-6.10); RDW 13.8 % (11.5-14.5); WBC 8.2 10x3/uL (4.8-10.8)
[2018-12-05 05:33] LABS: ANION GAP 11.5 mmol/L (8-16); CALCIUM 8.6 mg/dL (8.5-10.1); CARBON DIOXIDE 29.8 mmol/L (21.0-32.0); CREATININE - SERUM 1.1 mg/dL (0.6-1.3); MAGNESIUM - SERUM 1.8 mg/dL (1.8-2.4); PHOSPHOROUS 3.7 mg/dL (2.5-4.9)
[2018-12-05 05:40] LABS: PLATELET COUNT 206 10x3/uL (130-400)
[2018-12-05 05:52] LABS: POTASSIUM - SERUM 4.3 mmol/L (3.5-5.1)
[2018-12-05 08:32] VITALS: BP 141/71
[2018-12-05 11:50] VITALS: BP 136/77
--- NOTE | 2018-12-05 12:37 | MORECARE ---
CASE MANAGEMENT DISCHARGE SUMMARY PATIENT: CARSON VELAZQUEZ UNIT: [id number] ADM DATE: 12/02/18 AGE: 73 : 45 SEX: M ROOM/BED: D.9930 AUTHOR: GALILEA TAPIA PHYSICIAN: REFERRING PHYSICIAN: ADELE SCALES MD DATE OF SERVICE: 12/05/18 Discharge Plan Patient Name: CARSON VELAZQUEZ Facility: [facility]:[place] : 1945 Planned Disposition: Home Anticipated Discharge Date: Discharge Date: Expected LOS: Initial Reviewer: [email or web address] Initial Review Date: 12/02/2018 Generated: 12/05/18 1:37 pm Comments DCP- Discharge Planning Updated by [email or web address]: Jr Prater on 12/05/18 11:[address] Patient Name: CARSON VELAZQUEZ Encounter No: [id number] : 1945 Primary Insurance: MEDICARE A & B Anticipated DC Date: Planned Disposition: Home DCP follow-up note: FOLLOWING INTERDISCIPLINARY TEAM MEETING, CM CALLED AND SPOKE TO JAY NOONAN TO DETEMINE IF PT WAS READY TO DISCHARGE TODAY; CM WAS INFORMED THAT PT HAS A TERRIBLE EF AND IS IN AFIB, FUTHER, CARDIOLOGY IS CONSULTED. CM REVIEWED CARDIOLOGY NOTE FROM THIS MORNING THAT INDICATES PT IS STILL IN AFIB AND THEY ARE MANAGING MEDICATIONS AND TREATMENT. CM SPOKE TO PROJECT MANAGEMENT SPECIALIST, PT IS STILL IN AFIB [facility]TH[facility]. PT IS NOT READY TO DISCHARGE TODAY. PT PLANS TO DISCHARGE HOME, PT HAS NO ANTICIPATED NEEDS. CM TO FOLLOW AND ASSIST IF NEEDED. Jr Prater, DAINA BLUM DCP- Discharge Planning Updated by [email or web address]: Hanny Hinds on 12/03/18 4:[address] Patient Name: CARSON VELAZQUEZ Admission Status: ER Accout number: [id number] Admission Date: 12-02-2018 : 1945 Admission Diagnosis: Attending: ADELE SCALES Current LOS: 1 Anticipated DC Date: Planned Disposition: Home Primary Insurance: MEDICARE A & B Discharge Planning Comments: CM met with patient at bedside after explaining CM role and obtaining verbal consent. Patient lives at home alone and plans to return there upon discharge. Patient feels this would be a safe discharge. CM discussed availability / needs of home health and medical equipment. Patient denies any discharge needs at this time. Patient states he will have family / friend drive him home upon discharge. CM will continue to follow and assist as needed with discharge planning / needs. Coke Inspector: Hanny PRESCOTT - Discharge Planning Initial Assessment Updated by [id number]: Hanny Hinds on 12/03/18 5:55 pm * Is the patient Alert and Oriented? Yes * How many steps to enter\exit or inside your home? * PCP NO PCP * [facility]acy [facility] * Preadmission Environment Home with Family * ADLs Independent * Equipment None * List name and contact numbers for known caregivers / representatives who currently or will assist patient after discharge: LANA GALLEGOS - [phone] * Verbal permission to speak to the caregivers and representatives has been obtained from the patient. N/A * Community resources currently utilized None * Additional services required to return to the preadmission environment? No * Can the patient safely return to the preadmission environment? Yes * Has this patient been hospitalized within the prior 30 days at any hospital? No Last DP export: 12/03/18 5:05 p Patient Name: CARSON VELAZQUEZ Page 53870 at 1237 All edits/amendments must be made on the electronic document DICTATION DATE: 12/05/18 1237 FUEL MANAGEMENT HANDLER: CATRACHITA 12/05/18 1237 RPT#: [id number] DC DATE: STATUS: ADM IN [facility] [address] [place] [address] END OF REPORT
[2018-12-05 15:26] VITALS: BP 136/73
[2018-12-05] MEDS ORDERED: ELIQUIS5 MG PO (15:55)
[2018-12-05] MEDS ORDERED: AMIODARONE HCL200 MG PO (15:56)
[2018-12-05] MEDS ORDERED: TOPROL XL50 MG PO (15:56)
--- NOTE | 2018-12-05 16:47 | MORECARE ---
CASE MANAGEMENT DISCHARGE SUMMARY PATIENT: CARSON VELAZQUEZ UNIT: [id number] ADM DATE: 12/02/18 AGE: 73 : 45 SEX: M ROOM/BED: D.8074 AUTHOR: GALILEA TAPIA PHYSICIAN: REFERRING PHYSICIAN: ADELE SCALES MD DATE OF SERVICE: 12/05/18 Discharge Plan Patient Name: CARSON VELAZQUEZ Facility: [facility]:[place] : 1945 Planned Disposition: Home Anticipated Discharge Date: 12/05/18 Discharge Date: Expected LOS: 3 Initial Reviewer: [email or web address] Initial Review Date: 12/02/2018 Generated: 12/05/18 5:46 pm Comments DCP- Discharge Planning Updated by [id number]: Jr Prater on 12/05/18 3:[address] Patient Name: CARSON VELAZQUEZ Encounter No: [id number] : 1945 Primary Insurance: MEDICARE A & B Anticipated DC Date: 12-05-2018 Planned Disposition: Home DCP follow-up note: CM MET WITH PT IN ROOM TO DISCUSS DISCHARGE NEEDS AND PLANNING. NOTIFIED PT OF DISCHARGE, DISCUSSED AVAILABILITY OF HOME HEALTH, REHAB SERVICES AND MEDICAL EQUIPMENT. PT DENIES DISCHARGE NEEDS. PT TO CALL A FRIEND FOR TRANSPORT HOME AT DISCHARGE TODAY. IMPORTANT MESSAGE FROM MEDICARE PROVIDED AND EXPLAINED. CM NOTIFIED BEDSIDE NURSE OF PT'S DISCHARGE ORDER, ASKED FOR OXYGEN WEANING AND TO NOTIFY CM IF PT NEEDS OXYGEN FOR DISCHARGE TODAY. Jr Prater, DAINA BLUM DCP- Discharge Planning Updated by [email or web address]: Jr Prater on 12/05/18 11:[address] Patient Name: CARSON VELAZQUEZ Encounter No: [id number] : 1945 Primary Insurance: MEDICARE A & B Anticipated DC Date: Planned Disposition: Home DCP follow-up note: FOLLOWING INTERDISCIPLINARY TEAM MEETING, CM CALLED AND SPOKE TO JAY NOONAN TO DETEMINE IF PT WAS READY TO DISCHARGE TODAY; CM WAS INFORMED THAT PT HAS A TERRIBLE EF AND IS IN AFIB, FUTHER, CARDIOLOGY IS CONSULTED. CM REVIEWED CARDIOLOGY NOTE FROM THIS MORNING THAT INDICATES PT IS STILL IN AFIB AND THEY ARE MANAGING MEDICATIONS AND TREATMENT. CM SPOKE TO CP BLEACHER OPERATOR, PT IS STILL IN AFIB [facility]. PT IS NOT READY TO DISCHARGE TODAY. PT PLANS TO DISCHARGE HOME, PT HAS NO ANTICIPATED NEEDS. CM TO FOLLOW AND ASSIST IF NEEDED. Jr Prater, CASE MANAGEMENT DCP- Discharge Planning Updated by [id number]: Hanny Hinds on 12/03/18 4:[address] Patient Name: CARSON VELAZQUEZ Admission Status: ER Accout number: [id number] Admission Date: 12-02-2018 : 1945 Admission Diagnosis: Attending: ADELE SCALES Current LOS: 1 Anticipated DC Date: Planned Disposition: Home Primary Insurance: MEDICARE A & B Discharge Planning Comments: CM met with patient at bedside after explaining CM role and obtaining verbal consent. Patient lives at home alone and plans to return there upon discharge. Patient feels this would be a safe discharge. CM discussed availability / needs of home health and medical equipment. Patient denies any discharge needs at this time. Patient states he will have family / friend drive him home upon discharge. CM will continue to follow and assist as needed with discharge planning / needs. Coat Room Attendant: Hanny Hinds DCPIA - Discharge Planning Initial Assessment Updated by [id number]: Hanny Hinds on 12/03/18 5:55 pm * Is the patient Alert and Oriented? Yes * How many steps to enter\exit or inside your home? * PCP NO PCP * [facility]acy [facility] * Preadmission Environment Home with Family * ADLs Independent * Equipment None * List name and contact numbers for known caregivers / representatives who currently or will assist patient after discharge: LANA LE [phone] * Verbal permission to speak to the caregivers and representatives has been obtained from the patient. N/A * Community resources currently utilized None * Additional services required to return to the preadmission environment? No * Can the patient safely return to the preadmission environment? Yes * Has this patient been hospitalized within the prior 30 days at any hospital? No Coverage Notice Reviewer: [id number] - Jr Prater Notice Issued Date-Time: 12/05/2018 16:35 Notice Type: IM Discharge Notice Notice Delivered To: Patient Relationship to Patient: Contract Implementation Analyst Name: Delivery Method: HAND - Hand Delivered Tayla Days: Prior Verbal Notification: Recipient Understood Notice: Yes Recipient Signature: Yes Med Rec Note Co-signed by Attending: Coverage Notice Comment: Last DP export: 12/05/18 11:37 a Patient Name: CARSON VELAZQUEZ Page 35200 at 1647 All edits/amendments must be made on the electronic document DICTATION DATE: 12/05/181645 FLIGHT INSTRUCTOR: CATRACHITA 12/05/181645 RPT#: [id number] DC DATE: STATUS: ADM IN [facility] [address] [place] [address] END OF REPORT
--- NOTE | 2018-12-06 08:54 | MORECARE ---
CASE MANAGEMENT DISCHARGE SUMMARY PATIENT: CARSON VELAZQUEZ UNIT: [id number] ADM DATE: 12/02/18 AGE: 73 : 45 SEX: M ROOM/BED: D.3444 AUTHOR: GALILEA TAPIA PHYSICIAN: REFERRING PHYSICIAN: ADELE SCALES MD DATE OF SERVICE: 12/06/18 Discharge Plan Patient Name: CARSON VELAZQUEZ Facility: [facility]:[place] : 1945 Planned Disposition: Home Anticipated Discharge Date: 12/05/18 Discharge Date: 12/05/2018 Expected LOS: 3 Initial Reviewer: [email or web address] Initial Review Date: 12/02/2018 Generated: 12/06/18 9:54 am Comments DCP- Discharge Planning Updated by [email or web address]: Jr Prater on 12/05/18 3:[address] Patient Name: CARSON VELAZQUEZ Encounter No: [id number] : 1945 Primary Insurance: MEDICARE A & B Anticipated DC Date: 12-05-2018 Planned Disposition: Home DCP follow-up note: CM MET WITH PT IN ROOM TO DISCUSS DISCHARGE NEEDS AND PLANNING. NOTIFIED PT OF DISCHARGE, DISCUSSED AVAILABILITY OF HOME HEALTH, REHAB SERVICES AND MEDICAL EQUIPMENT. PT DENIES DISCHARGE NEEDS. PT TO CALL A FRIEND FOR TRANSPORT HOME AT DISCHARGE TODAY. IMPORTANT MESSAGE FROM MEDICARE PROVIDED AND EXPLAINED. CM NOTIFIED BEDSIDE NURSE OF PT'S DISCHARGE ORDER, ASKED FOR OXYGEN WEANING AND TO NOTIFY CM IF PT NEEDS OXYGEN FOR DISCHARGE TODAY. Jr Prater, DAINA BLUM DCP- Discharge Planning Updated by [id number]: Jr Prater on 12/05/18 11:[address] Patient Name: CARSON VELAZQUEZ Encounter No: [id number] : 1945 Primary Insurance: MEDICARE A & B Anticipated DC Date: Planned Disposition: Home DCP follow-up note: FOLLOWING INTERDISCIPLINARY TEAM MEETING, CM CALLED AND SPOKE TO JAY NOONAN TO DETEMINE IF PT WAS READY TO DISCHARGE TODAY; CM WAS INFORMED THAT PT HAS A TERRIBLE EF AND IS IN AFIB, FUTHER, CARDIOLOGY IS CONSULTED. CM REVIEWED CARDIOLOGY NOTE FROM THIS MORNING THAT INDICATES PT IS STILL IN AFIB AND THEY ARE MANAGING MEDICATIONS AND TREATMENT. CM SPOKE TO BUSINESS SUPERVISOR, PT IS STILL IN AFIB [facility]. PT IS NOT READY TO DISCHARGE TODAY. PT PLANS TO DISCHARGE HOME, PT HAS NO ANTICIPATED NEEDS. CM TO FOLLOW AND ASSIST IF NEEDED. Jr Prater, CASE MANAGEMENT DCP- Discharge Planning Updated by [id number]: Hanny Hinds on 12/03/18 4:[address] Patient Name: CARSON VELAZQUEZ Admission Status: ER Accout number: [id number] Admission Date: 12-02-2018 : 1945 Admission Diagnosis: Attending: ADELE SCALES Current LOS: 1 Anticipated DC Date: Planned Disposition: Home Primary Insurance: MEDICARE A & B Discharge Planning Comments: CM met with patient at bedside after explaining CM role and obtaining verbal consent. Patient lives at home alone and plans to return there upon discharge. Patient feels this would be a safe discharge. CM discussed availability / needs of home health and medical equipment. Patient denies any discharge needs at this time. Patient states he will have family / friend drive him home upon discharge. CM will continue to follow and assist as needed with discharge planning / needs. Forestry Support Specialist: Hanny Hinds DCPIA - Discharge Planning Initial Assessment Updated by [email or web address]: Hanny Hinds on 12/03/18 5:55 pm * Is the patient Alert and Oriented? Yes * How many steps to enter\exit or inside your home? * PCP NO PCP * [facility]acy [facility] * Preadmission Environment Home with Family * ADLs Independent * Equipment None * List name and contact numbers for known caregivers / representatives who currently or will assist patient after discharge: LANA GALLEGOS [phone] * Verbal permission to speak to the caregivers and representatives has been obtained from the patient. N/A * Community resources currently utilized None * Additional services required to return to the preadmission environment? No * Can the patient safely return to the preadmission environment? Yes * Has this patient been hospitalized within the prior 30 days at any hospital? No Coverage Notice Reviewer: [id number] - Jr Prater Notice Issued Date-Time: 12/05/2018 16:35 Notice Type: IM Discharge Notice Notice Delivered To: Patient Relationship to Patient: Boat Finisher Name: Delivery Method: HAND - Hand Delivered Tayla Days: Prior Verbal Notification: Recipient Understood Notice: Yes Recipient Signature: Yes Med Rec Note Co-signed by Attending: Coverage Notice Comment: Last DP export: 12/05/18 3:47 p Patient Name: CARSON VELAZQUEZ Page 26315 at 0854 All edits/amendments must be made on the electronic document DICTATION DATE: 12/06/18 0854 JUICE WEIGHER: CATRACHITA 12/06/18 0854 RPT#: [id number] DC DATE:12/05/18 STATUS: DIS IN [facility] [address] [place] [address] END OF REPORT
== END 2018-12-05 19:21 | disposition home or self-care (01) | DRG 292 ==
LOC: D.ER 05:24 → D.M2 05:40
PROVIDERS: Family Medicine; ADMIT Internal Medicine Nephrology; ATTEND Internal Medicine Nephrology
DX: I11.0 Hypertensive heart disease with heart failure (principal); N17.9 Acute kidney failure, unspecified; I48.91 Unspecified atrial fibrillation; I50.9 Heart failure, unspecified; E11.9 Type 2 diabetes mellitus without complications; E83.42 Hypomagnesemia; K75.9 Inflammatory liver disease, unspecified; K21.9 Gastro-esophageal reflux disease without esophagitis

== ENCOUNTER 2019-01-07 10:21 | Outpatient (CLI) | payer MEDICARE, OTHER ==
[~2019-01-07] VITALS: Ht 172.7 cm; Wt 96.4 kg
--- NOTE | ~2019-01-07 | HEMODYNAMI ---
PATIENT:CARSON VELAZQUEZ MEDICAL RECORD: [id number] : 45 LOCATION:[facility] ADMISSION DATE: 01/07/19 Generatedon:01/07/201913:00 Patient name: CARSON VELAZQUEZ Patient #: [id number] SSN: : 1945 Date of study: 01/07/2019 Page: Of Hemodynamic Procedure Report Patient Data Patient Demographics Procedure consent was obtained First Name: CARSON Gender: Male Last Name: CAROLINE : 1945 [facility] Initial: IRIS Age: 73 year(s) Patient #: [id number] Race: Unknown Additional ID: [id number] Contact details Address: [place] [address] State: [place] City: [place] Zip code: [address] Admission Admission Data Admission Date: 01/07/2019 Admission Time: 10:21 Admit Source: Other Height (in.): 67.72 BSA: 2.09 (m2) Height (cm.): 172 BMI: 32.45 (kg/m2) Weight (lbs.): 211.64 Weight (kg.): 96 Lab Results Lab Result Date: 01/07/2019 Lab Result Time: 0:00 Biochemistry Name Units Result Min Max BUN mg/dl 26 --(----)-* 7 18 Creatinine mg/dl 1.3 --(---*)-- 0.6 1.3 CBC Name Units Result Min Max Hemoglobin g/dl 13.8 --(*---)-- 13.5 17.5 Procedure Procedure Types Cath Procedure Diagnostic Procedure Cardioversion External Procedure Description Procedure Date Procedure Date: 01/07/2019 Procedure Start Time: 12:49 Procedure End Time: 12:53 Procedure Staff Name Function Bright Mauricio MD Performing Physician Libby Zhu RT Scrub Asa Dowling RN Nurse Merna Vyas RT Monitor Isauro Irby MD Additional personnel Procedure Data Cath Procedure Estimated blood loss: 0 ml Procedure Complications No complications Procedure Medications Medication Administration Route Dosage 0.9% NaCl I.V. 100 ml/hr Oxygen etCO2 Nasal cannula 5 l/min Refer to Anesthesia Notes for Sedation Medications Hemodynamics Rest BSA: 2.09 (m2) HGB: 13.8 (g/dl) O2 Consumption: Estimated: 244.2 (ml/min) O2 Consumption indexed: Estimated:116.84 (ml/min/m) Heart Rate: 74 (bpm) Snapshots Pre Cath Intra NCS Post Cath Vital Signs Time Heart Resp SPO2 etCO2 NIBP Rhythm Pain Sedation Rate (ipm) (%) (mmHg) (mmHg) Status Level (bpm) 12:45:03 71 19 0 108/74(86) A-Fib 0 (11) 10(A) , No pain 12:49:07 71 17 100 30.7 112/67(86) A-Fib 0 (11) 10(A) , No pain 12:53:11 55 22 98 27.7 94/71(80) NSR 0 (11) 8(A) , No pain 12:56:46 60 17 99 34.4 103/67(82) NSR 0 (11) 8(A) , No pain Medications Time Medication Route Dose Verified Delivered Reason Notes Effective ness by by 12:50:35 0.9% NaCl I.V. 100 Asa Asa Per ml/hr Josey Dowling physician RN RN 12:50:50 Oxygen etCO2 5 Asa Asa for low Nasal l/min Josey Dowling 02 sats cannula RN RN 12:50:59 Refer to Asa Bray for Anesthesia Josey Dowling sedation Notes for RN RN Sedation Medications Procedure Log Time Note 12:33:05 Diagnostic Cath Status : Elective 12:35:58 Lab Result : BUN 26 mg/dl 12:35:58 Lab Result : Hemoglobin 13.8 g/dl 12:35:58 Lab Result : Creatinine 1.3 mg/dl 12:36:34 Procedure Status Elective Heart Cath (OP). 12:36:38 Merna Vyas RT(R) sent for patient. Start room use. 12:36:39 Time tracking: Regular hours (M-F 7:00 - 5:00) 12:36:44 Plan of Care:Hemodynamics will remain stable., Cardiac rhythm will remain stable., Comfort level will be maintained., Respiratory function will remain adequate., Patient/ family verbilizes understanding of procedure., Procedure tolerated without complication., Recovers from procedure without complications.. 12:36:50 Admit Source: Other 12:36:58 Patient Weight : 211.64 lbs 12:37:02 Patient Height : 67.72 inches 12:42:01 Patient received from Pre/Post Procedure Room to CCL 3 Alert and oriented. Tansferred to table in Supine position. 12:42:03 Warm blankets applied, and aristeo hugger turned on for patient comfort. 12:42:04 Signed procedure consent form obtained from patient. 12:42:05 Correct patient and procedure confirmed by team. 12:42:06 ECG and BP/O2 sat monitors applied to patient. 12:43:45 Vital chart was started 12:43:51 Baseline sample Acquired. 12:43:54 Baseline sample Acquired. 12:44:27 Baseline sample Acquired. 12:45:33 Rhythm: atrial fibrillation 12:45:40 Full Disclosure recording started 12:45:43 H&P Date Dictated: 01/07/2019 Within 30 days and on chart., H&P Addendum completed by physician on day of procedure. (MUST COMPLETE FOR ALL OUTPATIENTS). 12:45:45 Pre-procedure instructions explained to patient. 12:45:45 Pre-op teaching completed and patient verbalized understanding. 12:45:46 Family in waiting room. 12:45:51 Patient NPO since Midnight. 12:45:53 Is the patient allergic to Iodine/contrast media? No. 12:45:55 Was the patient premedicated? No 12:46:48 Is patient on blood thinner?Yes 12:46:51 ACC The patient was administered the following blood thiners within the last 24 hours: Eliquis 12:46:53 Patient diabetic? Yes. 12:46:54 If diabetic: On Metformin? No 12:46:56 Previous problem with sedation/anesthesia? No ? 12:46:58 Snore? Yes 12:46:59 Sleep apnea? Yes 12:47:00 Deviated septum? No 12:47:01 Opens mouth fully? Yes 12:47:01 Sticks out tongue? Yes 12:47:03 Airway obstruction? No ? 12:47:05 Dentures? No ? 12:47:09 Patient pain scale 0/10 ?. 12:47:50 IV patent on arrival in left forearm with 0.9% NaCl at [facility]. 12:47:52 Lab results completed and on chart. 12:47:56 Alarms reviewed by R. N. 12::57 Sharps counted by scrub and verified by R.N. 12:48:47 Isauro Irby MD present and monitoring patient for TIVA. 12:48:57 Physician arrived 12:48:58 --------ALL STOP TIME OUT------ 12:48:59 Final Timeout: patient, procedure, and site verified with staff and physician. All members of the team are in agreement. 12:49:05 Fire Safety Assessment: A--An alcohol-based skin anteseptic being used preoperatively., C--Open oxygen or nitrous oxide is being used., D--An ESU, laser, or fiber-optic light is being used. 12:49:09 Physical assessment completed. ASA score P 2 - A patient with mild systemic disease as per Bright Mauricio MD. 12:49:15 Sedation plan: TIVA Medication:Propofol 12:49:26 Procedure started. 12:50:30 Quick combo pads placed on patients chest and back. 12:50:35 0.9% NaCl 100 ml/hr I.V. was administered by Asa Dowling RN; Per physician; 12:50:35 Defibrillator synced and charged to 200 Joules. 12:50:44 Quick Combo opened to sterile field. 12:50:50 Oxygen 5 l/min etCO2 Nasal cannula was administered by Asa Dowling RN; for low 02 sats; 12:50:59 Refer to Anesthesia Notes for Sedation Medications was administered by Asa Dowling RN; for sedation; 12:51:53 Shock delivered. 12:52:35 Procedure ended.(Physican Out) 12:53:03 Insertion/operative site no bleeding no hematoma. 12:53:09 Post procedure rhythm: sinus rhythm 12:53:11 Estimated blood loss: 0 ml 12:53:13 Post procedure instruction explained to patient.Patient verbalizes understanding. 12:53:14 Patient needs reinforcement of post procedure teaching. 12:53:20 Procedure and supply charges have been captured, reviewed, submitted and are correct. 12:53:24 Procedure Complication : No complications 12:53:27 Vital chart was stopped 12:53:28 See physician's report for complete and final results. 12:53:30 Report given to Pre/Post Procedure Room. 12:53:33 Patient transfered to Pre/Post Procedure Room with Stretcher. 12:53:37 Procedure ended. 12:53:37 Full Disclosure recording stopped 12:59:08 End room use (Document Last) Device Usage Item Manufacture Quantity Catalog Hospital Part Current Minimal Lot# / Name Number Charge Number Anahi Damon al# Code [facility] 1 [id number] Combo Signature Audit [place] Stage Time Signature Unsigned Intra-Procedure 01/07/2019 Merna Vyas 1:00:14 PM RT(R) Signatures Performing Physician : Signature : Bright Mauricio MD Date : Time : Nurse : Asa Dowling Signature : RN Date : Time : Monitor : Merna Vyas RT Signature : Date : Time : [address] [id number]
[~2019-01-07 10:21] MED LIST changes: +AMIODARONE HCL200 MG PO; +CYCLOBENZAPRINE10 MG PO; +ELIQUIS5 MG PO; +MOBIC7.5 MG PO; +TOPROL XL50 MG PO; +TYLENOL W/CODEI1 TAB PO
[2019-01-07 11:05] VITALS: BP 128/72; Ht 172.7 cm; Wt 96.4 kg
[2019-01-07 11:13] LABS: BASOPHILS 0.3 % (0-2); EOSINOPHILS 3.7 % (0-7); HEMATOCRIT 40.2 % (42.0-54.0); HEMOGLOBIN 13.8 g/dL (13.5-17.5); IMMATURE GRANULOCYTES 0.2 % (0-5); LYMPHOCYTES 24.4 % (15-50); MCH 30.6 pg (26.0-34.0); MCHC 34.3 g/dL (31.0-37.0); MCV 89.1 fL (80.0-100.0); MEAN PLATELET VOLUME 9.8 fL (7.4-10.4); MONOCYTES 11.9 % (2-11); NEUTROPHILS 59.5 % (40-80); PLATELET COUNT 217 10x3/uL (130-400); RBC 4.51 10x6/uL (4.20-6.10); RDW 13.7 % (11.5-14.5); WBC 10.6 10x3/uL (4.8-10.8)
[2019-01-07 11:29] LABS: ANION GAP 12.6 mmol/L (8-16); CALCIUM 9.3 mg/dL (8.5-10.1); CARBON DIOXIDE 26.4 mmol/L (21.0-32.0); CREATININE - SERUM 1.3 mg/dL (0.6-1.3); INR 1.48 (0.85-1.17); PROTIME 17.3 SECONDS (11.6-15.0)
--- NOTE | 2019-01-07 13:27 | NUR ---
1315 PT SLEEPING, RESP WITH EASE ON O2 AT 2LPM. NSR. BED LOCKED AND LOW, SIDE RAILS UP X2, CALL LIGHT IN REACH. NO FAMILY AT BEDSIDE.
--- NOTE | 2019-01-07 13:28 | NUR ---
PT SLEEPING, AWAKENS EASILY, DENIES ANY C/O PAIN OR NAUSEA. LUCRECIA PO FLUIDS WITH NO NAUSEA. VSS, NSR, DENIES ANY C/O CHEST PAIN.
--- NOTE | 2019-01-07 14:16 | NUR ---
1345 PT IS ALERT AND DENIES ANY C/O. VSS, CALL LIGHT IN REACH.
--- NOTE | 2019-01-07 14:17 | NUR ---
1410 DC INSTRUCTIONS REVIEWED WITH PT AND TORRIE WHO VERBALIZE UNDERSTANDING. IV DC'D WITH CATH INTACT. PT IS DRESSING FOR DC TO HOME. HAS LUCRECIA SANDWICH WITH NO C/O NAUSEA. DR MARIE HAS ROUNDED.
--- NOTE | 2019-01-07 15:45 | NUR ---
1455 PT HAS DRESSED FOR DC TO HOME. IS ALERT AND DENIES ANY C/O. PT ESCORTED TO PRIVATE AUTO VIA WC BY NURSE WITH TORRIE DRIVING HIM HOME.
== END 2019-01-07 14:55 | disposition home or self-care (01) ==
LOC: D.CATH 10:21
PROVIDERS: ATTEND Internal Medicine Cardiovascular Disease
DX: I48.91 Unspecified atrial fibrillation (principal); Z01.812 Encounter for preprocedural laboratory examination